=== PATIENT | female | born 1970 | race Caucasian/White ===

== ENCOUNTER 2016-09-12 22:32 | Emergency (ER) | payer OTHER ==
[~2016-09-12] VITALS: Ht 165.1 cm; Wt 93.0 kg
[~2016-09-12 22:32] MED LIST: ABILIFY10 MG PO; ALBUTEROL17 GM; ALBUTEROL17 GM INH; ALPRAZOLAM PO; AMBIEN PO; AMITRYPTYLINE PO; AMOXIL500 MG PO; ASMANEX0.135 G1; BACTRIM DS TABL1 TA1 PO; CIPRO PO; CYMBALTA; CYMBALTA PO; DEPRESSION MED; DESYREL50 MG PO; DOXEPIN PO; ERY-TAB500 MG PO; FLEXERIL10 MG PO; FLONASE 0.05% N16 G1; HYDROCODON-ACE1 EAC1 PO; HYDROCODON-ACE1 EAC7; IBUPROFEN PO; KLONOPIN PO; KLONOPIN1 MG; LEXAPRO PO; LITHIUM PO; LORTAB 5/500 TA1 TA1 PO; MEDROL DOSEPAK4 MG PO; MEDROL PO; MOTRIN100 M1 PO; MOTRIN600 M1 PO; MULTIVITAMIN1 UDCAP PO; NAPROXEN; NAPROXEN PO; NASAL SPRAY; NEURONTIN; NEURONTIN300 MG PO; NEURONTIN800 MG PO; NORFLEX100 MG PO; PAMELOR25 M1 PO; PERCOCET7.5; PHENERGAN25 MG PO; PREDNISONE PO; PRILOSEC20 MG PO; PROTONIX; PROTONIX PO; PROVERA PO; PYRIDIUM PO; REMERON30 MG PO; ROBAXIN; ROBAXIN500 MG PO; ROBITUSSIN COUG1 CAP PO; ROXICODONE30 M1 PO; SYMBICORT INH; TOPAMAX; TOPAMAX PO; TOPAMAX25 MG PO; TOPIRAMATE100 MG PO; TRAZODONE PO; TRIAMCINOLONE10 G1; TUSSIONEX PENN473 ML PO; VICODIN 5/500 T1 TAB PO; VITAMIN D2400 UNIT; WELLBUTRIN SR150 MG PO; WELLBUTRIN100 MG PO; XANAX2 MG PO; XODOL PO; ZANTAC; ZANTAC150 MG PO; ZITHROMAX PO; ZOFRAN ODT4 MG PO; ZOFRAN ODT4 MG/UDTAB PO; ZYRTEC; ZYRTEC10 M4 PO; [UNRECOGNIZED DRUG - OTHER] PO
[2016-09-12] MEDS ORDERED: FLEXERIL10 MG PO (22:40)
[2016-09-12] MEDS ORDERED: LEXAPRO PO (22:40)
== END 2016-09-13 00:41 | disposition home or self-care (01) ==
LOC: SED 22:32
DX: M54.41 Lumbago with sciatica, right side (principal); J45.909 Unspecified asthma, uncomplicated; F17.210 Nicotine dependence, cigarettes, uncomplicated; Z90.49 Acquired absence of other specified parts of digestive tract; Z90.710 Acquired absence of both cervix and uterus; Z98.890 Other specified postprocedural states; Z79.899 Other long term (current) drug therapy; Z88.5 Allergy status to narcotic agent
CPT/HCPCS: 99283